=== PATIENT | female | born 1945 | race Two or more races ===

== ENCOUNTER 2022-06-08 15:21 | Inpatient (IN) | payer MEDICARE, MEDICAID ==
[~2022-06-08] VITALS: Ht 172.7 cm; Wt 72.6 kg
[2022-06-08] MEDS ORDERED: SODIUM CHLORIDE 0.9% 1,000 ML IV ONE (18:45)
[2022-06-08 19:00] LABS: BG BASE EXCESS 0.3 mmol/L (-2.0-2.0); BG CARBOXYHEMOGLOBIN 0.5 % (0.5-1.5); BG DEOXYHEMOGLOBIN 8.2 % (0.0-5.0); BG FRACTION INSPIRED OXYGEN 21; BG HCO3 ACT 22.1 mmol/L (22.0-26.0); BG METHEMOGLOBIN 0.3 % (0.0-1.5); BG OXYGEN SATURATION 91.7 % (92.0-98.5); BG PCO2 27.7 mmHg (35.0-45.0); BG SAMPLE SITE RIGHT RADIAL; BG TOTAL HEMOGLOBIN 12.5 g/dL (12.0-18.0); BG VENT MODE ROOM AIR
[2022-06-08 21:34] LABS: BASOPHILS % 0.3 % (0.0-2.0); HEMATOCRIT. 34.9 % (36.0-48.0); HEMOGLOBIN. 11.7 g/dL (12.0-16.0); LYMPHOCYTES % 9.2 % (20.0-50.0); MEAN CORPUSCULAR HEMOGLOBIN 32.1 pg (28.0-32.0); MEAN CORPUSCULAR VOLUME 95.6 fL (81.0-99.0); MEAN PLATELET VOLUME 8.7 fl (7.4-10.4); MONOCYTES % 8.6 % (2.0-8.0); NEUTROPHILS % 81.9 % (40.0-76.0); PLATELET 192 x1000/uL (130-400); RED BLOOD CELL COUNT 3.65 mill/uL (4.2-5.4); RED CELL DISTRIBUTION WIDTH 15.6 % (11.6-14.6)
[2022-06-08 21:40] LABS: CHLORIDE 118 mEq/L (98-107)
[2022-06-08 21:47] LABS: ETHANOL BLOOD < 10 mg/dL
[2022-06-08] MEDS ORDERED: VANCOMYCIN 1G PREMIX 200 ML IV ONE (22:00)
[2022-06-08] MEDS ORDERED: PIPERACILLIN/TAZ 3.375G PREMIX 50 ML IV ONE (22:00)
[2022-06-08] MEDS ORDERED: SODIUM CHLORIDE 0.9% 1000ML BAG (SEPSIS BOLUS) IV ONE (22:00)
[2022-06-08] MEDS: OSELTAMIVIR 75MG CAPSULE PO ONE ×2 (22:22→22:29)
[2022-06-08] MEDS: LACTULOSE 20G/30ML UDC PO ONE ×2 (22:22→22:29)
[2022-06-08] MEDS: LACTULOSE ENEMA 1,000ML BOTTLE PR STA ×2 (22:23→22:30)
[2022-06-09 00:46] LABS: CLARITY URINE CLEAR (CLEAR); COLOR URINE DARK YELLOW (YELLOW); KETONES URINE TRACE (NEGATIVE); LEUKOCYTE ESTERASE URINE TRACE (NEGATIVE); NITRITE URINE NEGATIVE (NEGATIVE); OCCULT BLOOD URINE NEGATIVE (NEGATIVE); PH URINE 5.5 (4.5-8.0); PROTEIN URINE NEGATIVE (NEGATIVE); SPECIFIC GRAVITY URINE 1.015 (1.005-1.030)
[2022-06-09] MEDS ORDERED: VANCOMYCIN 1G PREMIX 200 ML IV NR (02:15)
[2022-06-09 09:06] LABS: *AMPHETAMINES SCREEN URINE NEGATIVE (NEGATIVE); *BARBITURATES SCREEN URINE NEGATIVE (NEGATIVE); *BENZODIAZEPINES SCREEN URINE NEGATIVE (NEGATIVE); *COCAINE SCREEN URINE NEGATIVE (NEGATIVE); CANNABINOID URINE SCREEN NEGATIVE (NEGATIVE); METHADONE URINE SCREEN NEGATIVE (NEGATIVE); OPIATES URINE SCREEN NEGATIVE (NEGATIVE); PHENCYCLIDINE URINE SCREEN NEGATIVE (NEGATIVE)
[2022-06-09] MEDS ORDERED: ACETAMINOPHEN 325MG TABLET PO PRN (09:15)
[2022-06-09] MEDS ORDERED: ONDANSETRON HCL 4MG/2ML INJ IV PRN (09:15)
[2022-06-09] MEDS: DEXTROSE 5% WATER 1,000 ML IV SCH (09:32)
[2022-06-09] MEDS: PIPERACILLIN/TAZ 3.375G PREMIX 50 ML IV SCH ×3 (10:31→22:05)
[2022-06-09] MEDS ORDERED: ALBUTEROL 6.7GM HFA INHALER ORI PRN (14:30)
[2022-06-09 15:06] LABS: BG BASE EXCESS -2.2 mmol/L (-2.0-2.0); BG CARBOXYHEMOGLOBIN 0.5 % (0.5-1.5); BG DEOXYHEMOGLOBIN 5.2 % (0.0-5.0); BG FRACTION INSPIRED OXYGEN 32; BG HCO3 ACT 19.7 mmol/L (22.0-26.0); BG METHEMOGLOBIN 0.2 % (0.0-1.5); BG OXYGEN SATURATION 94.8 % (92.0-98.5); BG OXYHEMOGLOBIN 94.1 % (94.0-97.0); BG PCO2 25.9 mmHg (35.0-45.0); BG PH 7.498 (7.350-7.450); BG PO2 71.2 mmHg (75.0-100.0); BG SAMPLE SITE RIGHT BRACHIAL; BG TOTAL HEMOGLOBIN 12.1 g/dL (12.0-18.0); BG VENT MODE NASAL CANNULA
[2022-06-09] MEDS: DEXAMETHASONE 6MG TABLET NG SCH (16:00)
[2022-06-09] MEDS: AMLODIPINE 10MG TABLET PO SCH (16:04)
[2022-06-09] MEDS: LACTULOSE 20G/30ML UDC PO SCH ×2 (16:04→22:05)
[2022-06-09] MEDS: CLONIDINE 0.1MG TABLET PO PRN (21:46)
[2022-06-10] MEDS: DEXTROSE 5% WATER 1,000 ML IV SCH ×2 (03:49→11:24)
[2022-06-10 04:43] LABS: BASOPHILS % 0.4 % (0.0-2.0); HEMATOCRIT. 36.7 % (36.0-48.0); HEMOGLOBIN. 12.3 g/dL (12.0-16.0); LYMPHOCYTES % 8.4 % (20.0-50.0); MEAN CORPUSCULAR VOLUME 95.2 fL (81.0-99.0); MEAN PLATELET VOLUME 8.9 fl (7.4-10.4); MONOCYTES % 5.8 % (2.0-8.0); NEUTROPHILS % 85.4 % (40.0-76.0); PLATELET 183 x1000/uL (130-400); RED BLOOD CELL COUNT 3.86 mill/uL (4.2-5.4)
[2022-06-10 04:50] LABS: CHLORIDE 119 mEq/L (98-107)
[2022-06-10 05:00] VITALS: BP 145/80
[2022-06-10 08:00] VITALS: BP 147/64
[2022-06-10] MEDS: PIPERACILLIN/TAZOBACTAM 3.375G in DEXT 5% WATER 50ML IV SCH ×3 (08:16→20:36)
[2022-06-10] MEDS: DEXAMETHASONE 6MG TABLET NG SCH (08:28)
[2022-06-10] MEDS: AMLODIPINE 10MG TABLET PO SCH (08:28)
[2022-06-10] MEDS ORDERED: POTASSIUM CHLORIDE 20MEQ TABLET SR PO SCH (11:15)
[2022-06-10 12:00] VITALS: BP 159/72
[2022-06-10] MEDS: LACTULOSE 20G/30ML UDC PO SCH ×2 (13:08→20:36)
[2022-06-10 16:00] VITALS: BP 141/98
[2022-06-10 20:00] VITALS: BP 123/78
[2022-06-11] VITALS: BP 158/66
[2022-06-11 04:00] VITALS: BP 174/69
[2022-06-11] MEDS: PIPERACILLIN/TAZOBACTAM 3.375G in DEXT 5% WATER 50ML IV SCH ×3 (04:56→21:38)
[2022-06-11] MEDS: CLONIDINE 0.1MG TABLET PO PRN (04:56)
[2022-06-11 06:24] LABS: BASOPHILS % 0.1 % (0.0-2.0); HEMATOCRIT. 34.4 % (36.0-48.0); HEMOGLOBIN. 11.5 g/dL (12.0-16.0); LYMPHOCYTES % 8.8 % (20.0-50.0); MEAN CORPUSCULAR HEMOGLOBIN 32.7 pg (28.0-32.0); MEAN CORPUSCULAR VOLUME 97.5 fL (81.0-99.0); MEAN PLATELET VOLUME 9.5 fl (7.4-10.4); MONOCYTES % 12.1 % (2.0-8.0); PLATELET 178 x1000/uL (130-400); RED BLOOD CELL COUNT 3.53 mill/uL (4.2-5.4); RED CELL DISTRIBUTION WIDTH 15.9 % (11.6-14.6)
[2022-06-11 08:00] VITALS: BP 160/64
[2022-06-11] MEDS: DEXAMETHASONE 6MG TABLET NG SCH (09:11)
[2022-06-11] MEDS: AMLODIPINE 10MG TABLET PO SCH (09:13)
[2022-06-11] MEDS: HYDRALAZINE HCL 50MG TABLET PO SCH ×2 (09:13→21:00)
[2022-06-11 12:00] VITALS: BP 125/58
[2022-06-11 14:00] LABS: CHLORIDE 122 mEq/L (98-107)
[2022-06-11 16:00] VITALS: BP 120/48
[2022-06-11] MEDS: DEXTROSE 5% WATER 1,000 ML IV SCH ×2 (16:12→21:38)
[2022-06-11 20:00] VITALS: BP 103/66
[2022-06-12] VITALS: BP 130/64
[2022-06-12 04:00] VITALS: BP 151/60
[2022-06-12] MEDS: PIPERACILLIN/TAZOBACTAM 3.375G in DEXT 5% WATER 50ML IV SCH ×3 (05:17→21:17)
[2022-06-12 08:00] VITALS: BP 145/61
[2022-06-12] MEDS: HYDRALAZINE HCL 50MG TABLET PO SCH ×2 (08:35→21:17)
[2022-06-12] MEDS: DEXAMETHASONE 6MG TABLET NG SCH (08:35)
[2022-06-12] MEDS: AMLODIPINE 10MG TABLET PO SCH (08:36)
[2022-06-12 12:00] VITALS: BP 120/48
[2022-06-12 16:00] VITALS: BP 119/94
[2022-06-12 16:29] LABS: HEMATOCRIT. 35.3 % (36.0-48.0); HEMOGLOBIN. 11.7 g/dL (12.0-16.0); MEAN CORPUSCULAR HEMOGLOBIN 31.8 pg (28.0-32.0); MEAN CORPUSCULAR VOLUME 95.8 fL (81.0-99.0); MEAN PLATELET VOLUME 9.3 fl (7.4-10.4); PLATELET 197 x1000/uL (130-400); RED BLOOD CELL COUNT 3.69 mill/uL (4.2-5.4); RED CELL DISTRIBUTION WIDTH 15.7 % (11.6-14.6)
[2022-06-12] MEDS: DEXTROSE 5% WATER 1,000 ML IV SCH (16:55)
[2022-06-12] MEDS ORDERED: LEVO750T68 MT (17:37)
[2022-06-12] MEDS ORDERED: ALBU18HF2 IH (17:38)
[2022-06-12] MEDS ORDERED: POTASSIUM CHLORIDE 20MEQ TABLET SR PO NR (17:45)
[2022-06-12 19:49] LABS: NUCLEATED RED BLOOD CELLS 1 /100 WBC; PLATELET ESTIMATE NORMAL
[2022-06-12 20:00] VITALS: BP 137/53
[2022-06-13] VITALS: BP 139/52
[2022-06-13 04:00] VITALS: BP 140/55
[2022-06-13] MEDS: DEXTROSE 5% WATER 1,000 ML IV SCH (05:03)
[2022-06-13] MEDS: PIPERACILLIN/TAZOBACTAM 3.375G in DEXT 5% WATER 50ML IV SCH (05:03)
[2022-06-13 08:00] VITALS: BP 127/62
[2022-06-13] MEDS: AMLODIPINE 10MG TABLET PO SCH (09:28)
[2022-06-13] MEDS: HYDRALAZINE HCL 50MG TABLET PO SCH (09:28)
[2022-06-13] MEDS ORDERED: LACT10SO7 MT (10:12)
[2022-06-13 11:27] VITALS: BP 127/62
[2022-06-13 12:00] VITALS: BP 123/1
== END 2022-06-13 13:45 | disposition home or self-care (01) | DRG 871 ==
LOC: ER 15:21 → MICUSO 23:06 → EDBEDREQTM 23:15 → EDBEDREQ 23:15 → EDBEDREQSVC 23:15 → 7EST 06-10 06:33
PROVIDERS: ADMIT Internal Medicine; ATTEND Internal Medicine
DX: A41.9 Sepsis, unspecified organism (principal); G93.41 Metabolic encephalopathy; U07.1 COVID-19; J12.82 Pneumonia due to coronavirus disease 2019; J96.00 Acute respiratory failure, unspecified whether with hypoxia or hypercapnia; E44.0 Moderate protein-calorie malnutrition; E72.20 Disorder of urea cycle metabolism, unspecified; E87.1 Hypo-osmolality and hyponatremia; E78.5 Hyperlipidemia, unspecified; K76.82 Hepatic encephalopathy; I10 Essential (primary) hypertension; E78.00 Pure hypercholesterolemia, unspecified; Z68.24 Body mass index [BMI] 24.0-24.9, adult
CPT/HCPCS: 36415; 36600; 70551; 71045; 73521; 73560; 76705; 80048; 80053; 80305; 80320; 81003; 82140; 82375; 82805; 82962; 83605; 83880; 84484; 85025; 87426; 87804; 92610; 93005; 97112; 97162; 97166; 99285; J2543; J3370; J7030; J7060; J7070; A4315; G0480

== ENCOUNTER → 2023-01-24 | Outpatient (CLI) | payer MEDICARE, MEDICAID ==
[~2023-01-24] MED LIST: ALBU18HF2 IH; LACT10SO7 MT
== END | disposition home or self-care (01) ==
LOC: CT 09:22
DX: I67.82 Cerebral ischemia (principal); G31.9 Degenerative disease of nervous system, unspecified; R90.82 White matter disease, unspecified; K11.1 Hypertrophy of salivary gland; J43.9 Emphysema, unspecified
CPT/HCPCS: 70490